=== PATIENT | male | born 2000 | race Caucasian/White ===

== ENCOUNTER 2018-01-13 23:04 | Observation (INO) ==
[2018-01-13] MEDS ORDERED: Metoprolol Inj 5 MG/5 ML Vial IV.PUSH ONE (23:15)
[2018-01-14 00:49] LABS: Chloride 101 meq/L (98-107); Potassium 3.3 meq/L (3.5-5.1); Sodium 138 meq/L (136-145)
--- NOTE | 2018-01-14 00:50 | ED ---
HPI General Chief Complaint: Arrhythmia / Palpitations Stated Complaint: heart palpitations Time Seen by Provider: 01/13/18 23:15 Source: patient and family Mode of arrival: ambulatory Limitations: no limitations History of Present Illness HPI narrative: Patient is a 17-year-old male he is coming in with palpitations that started suddenly tonight he denies excessive energy drinks he denies any stimulatory drugs he has had this happen to him before in the past he had seen a investigative analyst in [place] who had put a Holter monitor on and did not find any findings. Patient now is in rapid heart rate SVT narrow complex at 173 bpm. Patient is given Ativan IV with moderate reduce of his rapid heart rate to about 140 unable to see that he is not in the accessory pathway however he seems irregular and it looks like he is in a. I then give him Lopressor 2.5 which slows him further he is now rate controlled at 95 bpm however he is in A. fib with a few episodes of a P wave followed by an QRS that looks different than his QRS that are the rest of his EKG. Patient denies any thyroid history denies any congenital cardiac issues he had with again had a Holter monitor that did not find any solution to his episodes. Patient is pale and thin [place] by his father Related Data Home Medications Medication Instructions Recorded Confirmed No Known Home Medications 01/13/18 01/13/18 Allergies Allergy/AdvReac Type Severity Reaction Status Date / Time No Known Allergies Allergy Verified 01/13/18 23:15 Review of Systems ROS: all other systems reviewed are negative [facility] Medical History Medical History History of supraventricular tachycardia (Acute) Social History Social History Substance History: No History of Abuse Smoking Status: Current some day smoker Tobacco Type: Cigarettes How Often Do You Have a Drink Containing Alcohol: Never Recent Travel in [facility] [place] within the Last 8 Weeks: No Recent Out of Country Travel within the Last 8 Weeks: No Immunization History Tetanus Immunization: Unsure Exam Narrative Exam Narrative: GENERAL: Patient is pale thin circles underneath his eyes tacking weight 173 bpm irregularly rapid SKIN: Warm and dry. Pale HEAD: Atraumatic. Normocephalic. EYES: Pupils equal and round. No scleral icterus. No injection or drainage. ENT: No nasal bleeding or discharge. Mucous membranes pink and moist. NECK: Trachea midline. No JVD. CARDIOVASCULAR patient is in rapid A. fib after slowing him down A. fib with few episodes of a P wave followed by a QRS then going back into A. fib rate EKG 173 RESPIRATORY: No accessory muscle use. Clear to auscultation. Breath sounds equal bilaterally. GASTROINTESTINAL: Abdomen soft, non-tender, nondistended. Hepatic and splenic margins not palpable. MUSCULOSKELETAL: Extremities without clubbing, cyanosis, or edema. No obvious deformities. NEUROLOGICAL: Awake and alert. No obvious cranial nerve deficits. Motor grossly within normal limits. Five out of 5 muscle strength in the arms and legs. Normal speech. PSYCHIATRIC: Appropriate mood and affect; insight and judgment normal. Course Initial Documented Vital Signs Temperature 97.7 F 01/13/18 23:15 Pulse Rate 170 H 01/13/18 23:15 Respiratory Rate 20 01/13/18 23:15 Blood Pressure 155/95 H 01/13/18 23:15 Pulse Oximetry 100 01/13/18 23:15 Last Documented Vital Signs Temperature 97.7 F 01/13/18 23:15 Pulse Rate 94 H 01/14/18 00:41 Respiratory Rate 17 01/14/18 00:41 Blood Pressure 145/72 H 01/14/18 00:41 Pulse Oximetry 96 01/14/18 00:41 Medical Decision Making Lab Data Result diagrams: 01/14/18 00:03 01/14/18 00:03 Discharge Plan Physicians Team ED Provider: Timi Castillo Primary Care Provider: Primary Care Nel Dowell Rxs /Orders / Referrals /Forms Prescriptions: No Action No Known Home Medications RF: 0 Status ED Status: With Doctor
[2018-01-14 00:52] LABS: Albumin 4.7 g/dL (3.4-5.0); Anion Gap 8 meq/L (5-15); Blood Urea Nitrogen 12 mg/dL (7-18); Calcium 8.7 mg/dL (8.5-10.1); Carbon Dioxide 29.1 meq/L (21.0-32.0); Glucose,Random 82 mg/dL (74-106)
[2018-01-14 00:55] LABS: Alanine Aminotransferase 23 U/L (9-52)
[2018-01-14 00:56] LABS: Aspartate Aminotransferase 30 U/L (15-39); Glomerular Filtration Rate 78 mL/min (>89)
[2018-01-14 00:57] LABS: Total Protein 8.1 g/dL (6.4-8.2)
[2018-01-14 00:58] LABS: Alkaline Phosphatase 113 U/L (45-117)
[2018-01-14 01:20] LABS: Baso # (Auto) 0.1 th/mm3 (0.0-0.2); Baso % (Auto) 1.4 % (0.0-2.0); Eos # (Auto) 0.4 th/mm3 (0.0-0.4); Eos % (Auto) 4.8 % (0.0-4.0); Hematocrit 50.8 % (39.0-51.0); Lymph # (Auto) 3.3 th/mm3 (1.0-4.8); Lymph % (Auto) 35.9 % (9.0-44.0); Mean Corpuscular HGB Conc 33.5 % (32.0-36.0); Mean Corpuscular Hemoglobin 33.1 pg (27.0-34.0); Mean Corpuscular Volume 98.8 fL (80.0-100.0); Mean Platelet Volume 9.4 fL (7.0-11.0); Mono # (Auto) 0.6 th/mm3 (0.0-0.9); Mono % (Auto) 6.5 % (0.0-8.0); Neut # (Auto) 4.9 th/mm3 (1.8-7.7); Neut % (Auto) 51.4 % (16.0-70.0); Platelet Count 168 th/mm3 (150-450); Red Blood Count 5.15 mil/mm3 (4.50-5.90); Red Cell Distribution Width 12.6 % (11.6-17.2); White Blood Count 9.3 th/mm3 (4.0-11.0)
[2018-01-14] MEDS ORDERED: Acetaminophen 325 MG Tablet PO PRN (01:21)
[2018-01-14] MEDS ORDERED: Bisacodyl 10 MG Supp RECTAL PRN (01:21)
[2018-01-14 01:49] LABS: Barbiturate Screen,Urine Neg (Neg)
[2018-01-14 01:50] LABS: Amphetamine Screen,Urine Neg (Neg); Cannabinoid Screen,Urine Neg (Neg); Cocaine Screen,Urine Neg (Neg)
[2018-01-14 01:54] LABS: Opiate Screen,Urine Neg (Neg)
--- NOTE | 2018-01-14 08:07 | P.HP ---
History of Present Illness Primary Care Physician: No Primary Care Physician Chief Complaint: Fast heart rate History of Present Illness: 17-year-old male with no chronic medical illnesses who presented hospital for evaluation of fast heart rate. Patient states that little over a year ago he had an episode like this and was evaluated with testing to include EKGs, Holter monitor. He states that nothing was concluded with those test. Yesterday when the patient was sitting down at rest he is felt his heart starting to race, and because he had an episode of this before he wanted to come to the hospital to get an EKG to get it evaluated. On presentation patient had atrial fibrillation with RVR with heart rate 170. Patient was given Ativan, Lopressor, Inderal with improvement of his heart rate. Patient still with arrhythmia of atrial fibrillation, however rate is controlled. Patient denies any chest pain, shortness of breath, dyspnea, lightheadedness, dizziness, diaphoresis. Patient denies any amphetamine use, caffeine use, energy drinks, cold medications. - Diagnosis (1) Atrial fibrillation with RVR Review of Systems All other systems reviewed negative except as stated in HPI Cardiovascular: Reports irregular heart rhythm [facility] - History History Provided By: Patient - Medical History Medical History: Medical History (Last Updated 01/13/18 @ 23:17 by Rolando Morgan RN) History of supraventricular tachycardia - Surgical History Surgical History: Surgical History (Last Updated 01/14/18 @ 08:01 by ROBI Rey) No history of previous surgery - Family History Family History: Family History (Last Updated 01/14/18 @ 08:01 by ROBI Rey) Other No pertinent family history - Tobacco History Second Hand Smoke Exposure: Yes Tobacco Use In Past 30 Days: Yes Smoking Status: Current some day smoker Tobacco Type: Cigarettes - Alcohol History How Often Do You Have a Drink Containing Alcohol: Never - Substance Use History Substance History: No History of Abuse - Travel History Recent Travel in the [place] Within the Last 8 Weeks: No Recent Travel Out of the Country Within the Last 8 Weeks: No - Immunization History Tetanus Immunization: Unsure Medications and Allergies Active Medications: Active Medications Acetaminophen (Tylenol) 650 mg PO Q4H PRN PRN Reason: Temp > 100.4 Al Hydroxide/Mg Hydroxide (Milk Of Magnesia Liq) 30 ml PO Q12H PRN PRN Reason: Mild Constipation Bisacodyl (Dulcolax Supp) 10 mg RECTAL DAILY PRN PRN Reason: SEVERE CONSITIPATION Lactulose (Lactulose Liq) 30 ml PO DAILY PRN PRN Reason: SEVERE CONSITIPATION Ondansetron HCl (Zofran Inj) 4 mg IV.PUSH Q6H PRN PRN Reason: NAUSEA OR VOMITING Sennosides (Senokot) 17.2 mg PO Q12H PRN PRN Reason: Moderate Constipation Sodium Chloride (Ns Flush) 2 ml IV.FLUSH BID RADHA Sodium Chloride (Ns Flush) 2 ml IV.FLUSH PRN PRN PRN Reason: FLUSH AFTER USING IV ACCESS Allergies Allergy/AdvReac Type Severity Reaction Status Date / Time No Known Allergies Allergy Verified 01/13/18 23:15 Home Medications Medication Instructions Recorded Confirmed Type No Known Home Medications 01/13/18 01/13/18 History Exam Vital signs: Vital Signs 01/13/18 23:15 01/13/18 23:41 01/14/18 00:41 Temperature 97.7 F Pulse Rate 170 H 118 H 94 H Respiratory Rate 20 18 17 Blood Pressure 155/95 H 156/82 H 145/72 H Pulse Oximetry 100 98 96 01/14/18 01:29 01/14/18 02:24 01/14/18 02:31 Temperature 97.5 F L Pulse Rate 90 85 92 H Respiratory Rate 17 16 18 Blood Pressure 135/78 140/85 Pulse Oximetry 96 97 01/14/18 04:00 01/14/18 04:11 Temperature Pulse Rate 72 70 Respiratory Rate 13 14 Blood Pressure 102/46 L Pulse Oximetry 96 96 Intake & Output 01/13/18 01/14/18 01/14/18 18:59 06:59 18:59 Output Total 500 / 500 Balance -500 / -500 Weight 69.2 kg Output: Urine 500 / 500 Other: # Voids 1 Weight On Admission 69.2 kg Narrative: GENERAL: Well-developed, well-nourished, in no acute distress. alert and orientated HEENT: Head is normocephalic without any lesions or masses noted. Facial features are symmetric. Eyes: Pupils equal round reactive to light. Extraocular muscles are intact. Conjunctivae were clear. Oropharyngeal: Pharynx without any erythema edema. Tongue is midline without deviation. Buccal mucosa is moist without any masses or lesions NECK: Supple without any masses. Trachea midline no deviation. No JVD, no bruits are appreciated CARDIAC: Irregular rhythm, irregular rate. S1/S2 are heard. No murmurs gallops or rubs. LUNGS: Clear to auscultation bilaterally. No wheeze, rhonchi or rales. No use of accessory muscles on inspiration or expiration. ABDOMEN: Soft, nontender. Nondistended. Bowel sounds heard in all 4 quadrants. No organomegaly or masses. Negative rebound, negative guarding EXTREMITIES: No edema, pulses are equal bilaterally. No cyanosis or clubbing NEUROLOGY: Mood and affect appear appropriate. Cranial nerves II through XII grossly intact. Muscle strength 5/5 in upper and lower extremities bilaterally. Deep tendon reflexes are 2+ in upper and lower extremities bilaterally. Results - Labs CBC & Chem 7: 01/14/18 00:03 01/14/18 00:03 Labs: Laboratory Results - last 24 hr 01/14/18 01/14/18 01/14/18 00:03 00:03 01:33 CBC w Diff Auto diff final WBC 9.3 RBC 5.15 Hgb 17.0 Hct 50.8 MCV 98.8 MCH 33.1 MCHC 33.5 RDW 12.6 Plt Count 168 MPV 9.4 Neut % (Auto) 51.4 Lymph % (Auto) 35.9 [place] % (Auto) 6.5 Eos % (Auto) 4.8 H Baso % (Auto) 1.4 Neut # (Auto) 4.9 Lymph # (Auto) 3.3 [place] # (Auto) 0.6 Eos # (Auto) 0.4 Baso # (Auto) 0.1 WBC Differential . Differential Comment . Sodium 138 Potassium 3.3 L Chloride 101 Carbon Dioxide 29.1 Anion Gap 8 BUN 12 Creatinine 1.20 Estimated GFR 78 L Random Glucose 82 Calcium 8.7 Magnesium 2.4 Total Bilirubin 0.6 AST 30 ALT 23 Alkaline Phosphatase 113 Troponin I Less than 0.02 L Total Protein 8.1 Albumin 4.7 TSH 1.470 Urine Opiates Screen Ur Barbiturates Screen Ur Amphetamines Screen U Benzodiazepines Scrn Urine Cocaine Screen U Cannabinoids Screen 01/14/18 01:39 CBC w Diff WBC RBC Hgb Hct MCV MCH MCHC RDW Plt Count MPV Neut % (Auto) Lymph % (Auto) [place] % (Auto) Eos % (Auto) Baso % (Auto) Neut # (Auto) Lymph # (Auto) [place] # (Auto) Eos # (Auto) Baso # (Auto) WBC Differential Differential Comment Sodium Potassium Chloride Carbon Dioxide Anion Gap BUN Creatinine Estimated GFR Random Glucose Calcium Magnesium Total Bilirubin AST ALT Alkaline Phosphatase Troponin I Total Protein Albumin TSH Urine Opiates Screen Neg Ur Barbiturates Screen Neg Ur Amphetamines Screen Neg U Benzodiazepines Scrn Neg Urine Cocaine Screen Neg U Cannabinoids Screen Neg Caprini VTE Risk Assessment Caprini VTE Risk Assessment: No/Low Risk (score <= 1) Caprini Risk Assessment Model: Point Value = 1 Point Value = 2 Point Value = 3 Point Value = 5 Age 41-60 Minor surgery BMI > 25 kg/m2 Swollen legs Varicose veins or History of unexplained or recurrent spontaneous Oral contraceptives or hormone replacement Sepsis (< 1 month) Serious lung disease, including pneumonia (< 1 month) Abnormal pulmonary function Acute myocardial infarction Congestive heart failure (< 1 month) History of inflammatory bowel disease Medical patient at bed rest Age 61-74 Arthroscopic surgery Major open surgery (> 45 min) Laparoscopic surgery (> 45 min) Malignancy Confined to bed (> 72 hours) Immobilizing plaster cast Central venous access Age >= 75 History of VTE Family history of VTE Factor V Leiden Prothrombin [id number] Lupus anticoagulant Anticardiolipin antibodies Elevated serum homocysteine Heparin-induced thrombocytopenia Other congenital or acquired thrombophilia Stroke (< 1 month) Elective arthroplasty Hip, pelvis, or leg fracture Acute spinal cord injury (< 1 month) Prophylaxis Regimen: Total Risk Factor Score Risk Level Prophylaxis Regimen 0-1 Low Early ambulation 2 Moderate Order ONE of the following: *Sequential Compression Device (SCD) *Heparin 5000 units SQ BID 3-4 Higher Order ONE of the following medications: *Heparin 5000 units SQ TID *Enoxaparin/Lovenox 40 mg SQ daily (WT < 150 kg, CrCl > 30 mL/min) *Enoxaparin/Lovenox 30 mg SQ daily (WT < 150 kg, CrCl > 10-29 mL/min) *Enoxaparin/Lovenox 30 mg SQ BID (WT < 150 kg, CrCl > 30 mL/min) AND/OR *Sequential Compression Device (SCD) 5 or more Highest Order ONE of the following medications: *Heparin 5000 units SQ TID (Preferred with Epidurals) *Enoxaparin/Lovenox 40 mg SQ daily (WT < 150 kg, CrCl > 30 mL/min) *Enoxaparin/Lovenox 30 mg SQ daily (WT < 150 kg, CrCl > 10-29 mL/min) *Enoxaparin/Lovenox 30 mg SQ BID (WT < 150 kg, CrCl > 30 mL/min) AND *Sequential Compression Device (SCD) Assessment and Plan - Assessment (1) Atrial fibrillation with RVR Code(s): I48.91 - Unspecified atrial fibrillation Status: Acute - Plan New onset atrial fibrillation -Rate controlled after use Lopressor, Ativan, propranolol in the emergency department -Continue monitor telemetry -Continue monitor cardiac enzymes to rule out any cardiac injury -Obtain echocardiogram -Pursue myocardial perfusion study to evaluate for any underlying ischemic etiology -Cardiology consultation has been requested -CHADS 2 score is 0 -Start aspirin -After workup complete and life-threatening etiology has been ruled out. Patient could benefit from possible cardioversion, cardiac ablation DVT prevention -Sequential compression devices
[2018-01-14 10:13] LABS: Anion Gap 6 meq/L (5-15); Calcium 8.5 mg/dL (8.5-10.1); Carbon Dioxide 30.6 meq/L (21.0-32.0); Chloride 105 meq/L (98-107); Potassium 3.8 meq/L (3.5-5.1); Sodium 142 meq/L (136-145)
[2018-01-14 10:14] LABS: Blood Urea Nitrogen 9 mg/dL (7-18); Glucose,Random 86 mg/dL (74-106)
[2018-01-14 10:17] LABS: Glomerular Filtration Rate Greater Than 89 mL/min (>89)
[2018-01-14] MEDS ORDERED: Regadenoson Inj 0.4 MG/5 ML Syringe IV.PUSH ONE (10:47)
--- NOTE | 2018-01-14 11:46 | MB ---
cc: Rafa Peña MD DATE: 01/14/2018 HISTORY OF PRESENT ILLNESS: Mainor is a very pleasant 17-year-old gentleman with no significant past medical history, who presents with palpitations. He is actually found to be in atrial fibrillation with rapid ventricular response. The patient smokes, but otherwise denies any supplements, stimulants, amphetamines, weight loss supplements, weight loss fluid or electrolyte loss or any other obvious precipitants to atrial fibrillation. Currently he remains in atrial fibrillation, rate controlled. Otherwise, denies any chest pain, shortness of breath, fever, chills, cough, GI or bleeding, PND, orthopnea, syncope, or dizziness. PAST MEDICAL HISTORY: As per history of present illness. ALLERGIES: NONE. SOCIAL HISTORY: He does smoke. Denies alcohol use. MEDICATIONS: 1. Aspirin 325 daily. 2. The patient received propranolol 20 mg p.o. x 1. 3. Lopressor 2.5 mg IV x 1. PHYSICAL EXAMINATION: VITAL SIGNS: Temperature 97.5, pulse 92, respiratory rate 14, blood pressure 102/46, saturations 96% on room air. GENERAL: He is alert and oriented x 3, in no acute distress. NECK: Supple. No JVD. No bruit. CARDIOVASCULAR: S1, S2. No murmurs, rubs, gallops. LUNGS: Clear to auscultation bilaterally. ABDOMEN: Soft, nontender, nondistended with positive bowel sounds. EXTREMITIES: Lower extremity edema. IMAGING/LABORATORY DATA: His first EKG on 01/13/2018 at 2313 shows atrial fibrillation at a rate of 173 beats per minute, nonspecific ST-T wave changes. EKG on 01/13/2018 at 2335: Atrial fibrillation at a rate of 148 beats per minute, nonspecific ST-T wave changes, normal intervals. EKG 01/13/2018 at 2337: Atrial fibrillation at 122 beats per minute. Nonspecific ST-T wave changes, normal intervals. EKG 01/13/2018 at 2344: Atrial fibrillation at 101 beats per minute, nonspecific ST-T wave changes, normal intervals. There is no chest x-ray in the computer. LABORATORY DATA: White count 9.3, hemoglobin 17.0, hematocrit 50.8, platelet count 168. Sodium 138, potassium 3.3, chloride 101, bicarbonate 29.1, BUN 12, creatinine 1.20. Troponin less than 0.02 x 2. LFTs normal. TSH 1.470. Toxicology is negative. DIAGNOSES: 1. Atrial fibrillation with rapid ventricular response. 2. New onset atrial fibrillation. 3. Tobacco abuse. 4. Hypokalemia. DISCUSSION: This patient has new onset atrial fibrillation with hypokalemia, but no other obvious precipitants at this point in time. I certainly recommend getting a 2D echo. Otherwise, his CHADS-VASc score is 0. Agree with aspirin. He is rate controlled after 1 dose of Lopressor and propranolol as detailed above. We will need to continue telemetry monitoring. I have strongly advised the patient to discontinue smoking. We will follow up 2D echo. MD MERRY Starr/talita , 10:37 AM , 10:47 AM
--- NOTE | 2018-01-14 11:56 | NM ---
EXAM DATE: 01/14/2018 11:51 AM EST AGE/SEX: 17 years / Male INDICATIONS:Atrial Fibrillation. . Palpitations. CLINICAL DATA: This is the patient's initial encounter. Patient reports that signs and symptoms have been present for 1 day and indicates a pain score of 0/10. MEDICAL/SURGICAL HISTORY: . Supraventricular tachycardia. None. COMPARISON: No prior exams available for comparison. DOSE: 8.8 mCi Tc 99m Myoview at rest 27.3 mCi [id number] at stress 0.4 mg Lexiscan STRESS SYMPTOMS: Dyspnea, lightheadedness and chest pressure. EJECTION FRACTION: 45 % TECHNIQUE: The patient underwent pharmacologic stress with infusion of prescribed dose. Continuous ECG tracing was monitored during stress. Gated SPECT imaging was performed after stress and conventi onal SPECT imaging was performed at rest. The examination was performed on a SPECT/CT scanner, both attenuation and non-corrected datasets were reviewed. FINDINGS: Gut activity obscures the inferior wall. The best perfused myocardium is the lateral wall. There is n o redistribution suggest ischemia. Ejection fraction is intact at 45% with global hypokinesis. RISK CATEGORY: Low (<1% Annual Motality Rate) CONCLUSION: 1. Negative for stress-induced ischemia. 2. Gut activity does mass the inferior wall 3. Ejection fraction is 45% with global hypokinesis. Correlation suggested. Electronically signed by: Griffin Green MD 01/14/2018 11:55 AM EST
--- NOTE | 2018-01-14 16:43 | ECHRPT ---
Indication: Atrial Fib and Flutter CONCLUSIONS The left ventricular systolic function is mildly reduced with an estimated ejection fraction in the range of 45- 50%. Normal left ventricular size. Mild mitral valve regurgitation. There is trace tricuspid valve regurgitation. The estimated pulmonary arterial pressure is 31 mmHg. BP: 116 / 62 HR: 90 Rhythm: MEASUREMENTS (Male / Female) Normal Values Technical Quality:Good 2D ECHO LV Diastolic Diameter PLAX 4.3 cm 4.2 - 5.9 / 3.9 - 5.3 cm LV Systolic Diameter PLAX 3.2 cm IVS Diastolic Thickness 0.7 cm 0.6 - 1.0 / 0.6 - 0.9 cm LVPW Diastolic Thickness 0.9 cm 0.6 - 1.0 / 0.6 - 0.9 cm LV Relative Wall Thickness 0.4 RV Internal Dim ED PLAX 3.1 cm LVOT Diameter 2.3 cm Aortic Root Diameter 2.8 cm LA Systolic Diameter LX 2.8 cm 3.0 - 4.0 / 2.7 - 3.8 cm M-MODE AV Cusp Separation MM 2.0 cm DOPPLER AV Peak Velocity 83.6 cm/s AV Peak Gradient 2.8 mmHg LVOT Peak Velocity 70.6 cm/s LVOT Peak Gradient 2.0 mmHg AV Area Cont Eq pk 3.5 cm Mitral E Point Velocity 91.3 cm/s LV E' Lateral Velocity 14.0 cm/s Mitral E to LV E' Lateral Ratio 6.5 LV E' Septal Velocity 17.6 cm/s Mitral E to LV E' Septal Ratio 5.2 TR Peak Velocity 228.0 cm/s TR Peak Gradient 20.8 mmHg Right Atrial Pressure 10.0 mmHg Pulmonary Artery Systolic Pressu 30.8 mmHg Right Ventricular Systolic Press 30.8 mmHg PV Peak Velocity 78.7 cm/s PV Peak Gradient 2.5 mmHg FINDINGS LEFT VENTRICLE The left ventricular systolic function is mildly reduced with an estimated ejection fraction in the range of 45- 50%. Normal left ventricular size. RIGHT VENTRICLE Normal right ventricular size and systolic function. LEFT ATRIUM The left atrial size is normal. RIGHT ATRIUM The right atrial size is normal. ATRIAL SEPTUM Normal atrial septal thickness without atrial level shunting by limited color doppler interrogation. AORTA The aortic root and proximal ascending aorta are normal in size on limited imaging. MITRAL VALVE Mild mitral valve regurgitation. AORTIC VALVE Trileaflet aortic valve. No aortic valve stenosis or regurgitation. TRICUSPID VALVE There is trace tricuspid valve regurgitation. The estimated pulmonary arterial pressure is 31 mmHg. PULMONARY VALVE No pulmonary valve regurgitation or stenosis. VESSELS The inferior vena cava is normal in size. PERICARDIUM No pericardial effusion. Aditya Irvin MD (Electronically Signed) Final Date:14 January 2018 16:42
[2018-01-15 06:01] LABS: Baso # (Auto) 0.1 th/mm3 (0.0-0.2); Baso % (Auto) 1.5 % (0.0-2.0); Eos # (Auto) 0.4 th/mm3 (0.0-0.4); Eos % (Auto) 6.3 % (0.0-4.0); Hematocrit 48.7 % (39.0-51.0); Hemoglobin 16.3 gm/dL (13.0-17.0); Lymph # (Auto) 3.3 th/mm3 (1.0-4.8); Lymph % (Auto) 45.2 % (9.0-44.0); Mean Corpuscular HGB Conc 33.4 % (32.0-36.0); Mean Corpuscular Hemoglobin 32.7 pg (27.0-34.0); Mean Platelet Volume 8.1 fL (7.0-11.0); Mono # (Auto) 0.5 th/mm3 (0.0-0.9); Mono % (Auto) 6.9 % (0.0-8.0); Neut # (Auto) 2.8 th/mm3 (1.8-7.7); Neut % (Auto) 40.1 % (16.0-70.0); Platelet Count 145 th/mm3 (150-450); Red Blood Count 4.97 mil/mm3 (4.50-5.90); Red Cell Distribution Width 12.3 % (11.6-17.2); White Blood Count 7.1 th/mm3 (4.0-11.0)
[2018-01-15 06:11] LABS: Potassium 3.8 meq/L (3.5-5.1)
[2018-01-15 06:15] LABS: Calcium 8.6 mg/dL (8.5-10.1)
--- NOTE | 2018-01-15 09:51 | P.PNIM ---
Subjective Interval history: 17-year-old male who is seen examined today for follow-up on new onset atrial fibrillation. Patient is lying in bed resting comfortably. Patient still with irregular rhythm. Patient denies any symptoms at this time. Blood pressure is stable. Patient remains afebrile. Physical Exam Vital signs: Vital Signs 01/14/18 11:56 01/14/18 12:00 01/14/18 14:00 Temperature 98.8 F 98.4 F Pulse Rate 74 76 80 Respiratory Rate 8 L 12 Blood Pressure 126/85 126/85 Pulse Oximetry 98 01/14/18 16:00 01/14/18 20:00 01/15/18 00:00 Temperature 98.3 F 98.3 F 98.4 F Pulse Rate 76 126 H 68 Respiratory Rate 01 25 18 Blood Pressure 115/59 L 110/58 L 119/75 Pulse Oximetry 99 100 01/15/18 04:00 Temperature Pulse Rate 64 Respiratory Rate 18 Blood Pressure 106/57 L Pulse Oximetry 99 Intake & Output 01/14/18 01/15/18 01/15/18 18:59 06:59 18:59 Weight 68.2 kg Other: # Voids 2 3 Narrative: GENERAL: Well-developed, well-nourished, in no acute distress. alert and orientated HEENT: Head is normocephalic without any lesions or masses noted. Facial features are symmetric. Eyes: Extraocular muscles are intact. Conjunctivae were clear. NECK: Supple without any masses. Trachea midline no deviation. No JVD, CARDIAC: Irregular rhythm, irregular rate. S1/S2 are heard. No murmurs gallops or rubs. LUNGS: Clear to auscultation bilaterally. No wheeze, rhonchi or rales. No use of accessory muscles on inspiration or expiration. ABDOMEN: Soft, nontender. Nondistended. Bowel sounds heard in all 4 quadrants. No organomegaly or masses. Negative rebound, negative guarding EXTREMITIES: No edema, pulses are equal bilaterally. No cyanosis or clubbing NEUROLOGY: Mood and affect appear appropriate. Cranial nerves II through XII grossly intact. Moving all extremities, speech is clear Results - Labs CBC & Chem 7: 01/15/18 05:37 01/15/18 05:37 Laboratory Results - last 24 hr 12/07/18 12/07/18 12/08/18 09:20 09:20 05:37 CBC w Diff Auto diff final WBC 7.1 RBC 4.97 Hgb 16.3 Hct 48.7 MCV 98.0 MCH 32.7 MCHC 33.4 RDW 12.3 Plt Count 145 L MPV 8.1 Neut % (Auto) 40.1 Lymph % (Auto) 45.2 H [place] % (Auto) 6.9 Eos % (Auto) 6.3 H Baso % (Auto) 1.5 Neut # (Auto) 2.8 Lymph # (Auto) 3.3 [place] # (Auto) 0.5 Eos # (Auto) 0.4 Baso # (Auto) 0.1 WBC Differential . Differential Comment . Sodium 142 Potassium 3.8 Chloride 105 Carbon Dioxide 30.6 Anion Gap 6 BUN 9 Creatinine 1.00 Estimated GFR Greater than 89 Random Glucose 86 Calcium 8.5 Troponin I Less than 0.02 L 01/15/18 05:37 CBC w Diff WBC RBC Hgb Hct MCV MCH MCHC RDW Plt Count MPV Neut % (Auto) Lymph % (Auto) [place] % (Auto) Eos % (Auto) Baso % (Auto) Neut # (Auto) Lymph # (Auto) [place] # (Auto) Eos # (Auto) Baso # (Auto) WBC Differential Differential Comment Sodium 140 Potassium 3.8 Chloride 104 Carbon Dioxide 30.0 Anion Gap 6 BUN 11 Creatinine 1.10 Estimated GFR 86 L Random Glucose 89 Calcium 8.6 Troponin I - Imaging Impressions Myocardial Perfusion Scan Nuc Med 01/14/18 09:18 CONCLUSION: 1. Negative for stress-induced ischemia. 2. Gut activity does mass the inferior wall 3. Ejection fraction is 45% with global hypokinesis. Correlation suggested. - Procedures ECHOCARDIOGRAM CONCLUSIONS The left ventricular systolic function is mildly reduced with an estimated ejection fraction in the range of 45- 50%. Normal left ventricular size. Mild mitral valve regurgitation. There is trace tricuspid valve regurgitation. The estimated pulmonary arterial pressure is 31 mmHg. Assessment and Plan - Assessment (1) Atrial fibrillation with RVR Code(s): I48.91 - Unspecified atrial fibrillation Status: Acute - Plan New onset atrial fibrillation -Rate controlled after use Lopressor, Ativan, propranolol in the emergency department -Continue monitor telemetry -Continue monitor cardiac enzymes to rule out any cardiac injury -Echocardiogram does indicate ejection fraction 45-50%, with mild reduction of systolic function -Myocardial perfusion study performed which did not show any signs of ischemia does indicate ejection fraction of 45% -Cardiology consultation will performed and Dr. Peña is requesting patient be transferred to the main hospital for further treatment -CHADS 2 score is 0 -Continue aspirin DVT prevention -Sequential compression devices Discussed Condition With: Discussed with patient, family at bedside, father on the phone
[2018-01-15] MEDS ORDERED: dilTIAZem Inj 125 MG in Sodium Chlor 0.9% Inj 100 ML IV.CONT PRN ×2 (11:56→14:30)
[2018-01-15] MEDS: dilTIAZem 30 MG Tablet PO SCH ×2 (17:20→23:39)
--- NOTE | 2018-01-15 17:41 | ECG ---
Date Performed: 01/13/2018 Time Performed: 23:37:33 PTAGE: 17 years EKG: ATRIAL FIBRILLATION WITH RAPID VENTRICULAR RESPONSE NONSPECIFIC T-WAVE ABNORMALITY ABNORMAL ECG PREVIOUS TRACING : 01/13/2018 23.35 DOCTOR: Denise Hancock Interpretating Date/Time 01/15/2018 17:29:33
--- NOTE | 2018-01-15 17:41 | ECG ---
Date Performed: 01/13/2018 Time Performed: 23:44:45 PTAGE: 17 years EKG: ATRIAL FIBRILLATION WITH RAPID VENTRICULAR RESPONSE NONSPECIFIC T-WAVE ABNORMALITY ABNORMAL ECG PREVIOUS TRACING : 01/13/2018 23.37 DOCTOR: Denise Hancock Interpretating Date/Time 01/15/2018 17:29:27
--- NOTE | 2018-01-15 17:41 | ECG ---
Date Performed: 01/13/2018 Time Performed: 23:35:40 PTAGE: 17 years EKG: ATRIAL FIBRILLATION WITH RAPID VENTRICULAR RESPONSE ST DEVIATION AND MODERATE T-WAVE ABNORM ALITY, CONSIDER INFERIOR ISCHEMIA ABNORMAL ECG PREVIOUS TRACING : 01/13/2018 23.13 DOCTOR: Denise Hancock Interpretating Date/Time 01/15/2018 17:29:38
--- NOTE | 2018-01-15 17:42 | ECG ---
Date Performed: 01/13/2018 Time Performed: 23:13:19 PTAGE: 17 years EKG: ATRIAL FIBRILLATION WITH RAPID VENTRICULAR RESPONSE ST DEVIATION AND MODERATE T-WAVE ABNORM ALITY, CONSIDER INFERIOR ISCHEMIA ABNORMAL ECG NO PREVIOUS TRACING DOCTOR: Denise Hancock Interpretating Date/Time 01/15/2018 17:29:51
[2018-01-15] MEDS: Enoxaparin Inj 80 MG/0.8 ML Syringe SQ SCH (21:35)
[2018-01-16 05:06] LABS: Hematocrit 46.1 % (39.0-51.0); Hemoglobin 16.3 gm/dL (13.0-17.0); Mean Corpuscular HGB Conc 35.4 % (32.0-36.0); Mean Corpuscular Hemoglobin 34.5 pg (27.0-34.0); Mean Corpuscular Volume 97.5 fL (80.0-100.0); Mean Platelet Volume 8.1 fL (7.0-11.0); Platelet Count 138 th/mm3 (150-450); Red Blood Count 4.73 mil/mm3 (4.50-5.90); Red Cell Distribution Width 12.7 % (11.6-17.2)
[2018-01-16] MEDS: dilTIAZem 30 MG Tablet PO SCH ×4 (06:25→23:45)
[2018-01-16] MEDS: Enoxaparin Inj 80 MG/0.8 ML Syringe SQ SCH ×2 (09:22→20:55)
--- NOTE | 2018-01-16 09:56 | P.PNIM ---
Subjective Interval history: feels ok. no complaints presently. no dizziness or lightheadedness. Interval hx-telemetry reviewed, reverted to sinus rhythm last night. Physical Exam Vital signs: Last Vital Signs Temp 97.7 F 01/16/18 04:00 Pulse 58 L 01/16/18 07:00 Resp 16 01/16/18 04:00 BP 102/55 L 01/16/18 04:00 Pulse Ox 99 01/15/18 04:00 Intake & Output 01/14/18 01/15/18 01/16/18 01/17/18 06:59 06:59 06:59 06:59 Intake Total 120 / 120 Output Total 500 / 500 Balance -500 / -500 120 / 120 Weight 69.2 kg 68.2 kg 70 kg Narrative: GENERAL: Well-developed, well-nourished, in no acute distress. alert and orientated HEENT:not pale,anicteric. NECK: No JVD, CARDIAC: rrr. S1/S2 are heard. No murmurs gallops or rubs. LUNGS: Clear to auscultation bilaterally. No wheeze, rhonchi or rales. No use of accessory muscles on inspiration or expiration. ABDOMEN: Soft, nontender. Nondistended. Bowel sounds normal. No organomegaly or masses. EXTREMITIES: No edema, pulses are equal bilaterally. No cyanosis or clubbing NEUROLOGY: Mood and affect appear appropriate. Awake,alert,oriented. no focal deficits. Results Labs CBC & Chem 7: 01/16/18 04:46 01/15/18 05:37 Procedures Procedures: ECHOCARDIOGRAM CONCLUSIONS The left ventricular systolic function is mildly reduced with an estimated ejection fraction in the range of 45- 50%. Normal left ventricular size. Mild mitral valve regurgitation. There is trace tricuspid valve regurgitation. The estimated pulmonary arterial pressure is 31 mmHg. Assessment and Plan (1) Atrial fibrillation with RVR: Code(s): I48.91 - Unspecified atrial fibrillation Status: Acute Plan 17 yo M who presented with A. fib w RVR. ECHO noted with EF 45-50% [id number] 0, no need for anticoagulation. He has spontaneously reverted to NSR. Keep on [facility] cardiology following, recs appreciated. Hypokalemia--resolved. Progress Note: Quality VTE Deep Vein Thrombosis/Pulmonary Embolism Present on Admission: No
--- NOTE | 2018-01-16 10:41 | P.PNCA ---
Subjective Interval history: alert in nad Medications and Allergies Active Medications: Active Medications Acetaminophen (Tylenol) 650 mg PO Q4H PRN PRN Reason: Temp > 100.4 Al Hydroxide/Mg Hydroxide (Milk Of Magnesia Liq) 30 ml PO Q12H PRN PRN Reason: Mild Constipation Bisacodyl (Dulcolax Supp) 10 mg RECTAL DAILY PRN PRN Reason: SEVERE CONSITIPATION Diltiazem HCl (Cardizem) 30 mg PO Q6HR [facility] Last Admin: 01/16/18 06:25 Dose: Not Given Enoxaparin Sodium (Lovenox Inj) 70 mg SQ Q12HR [facility] Last Admin: 01/16/18 09:22 Dose: 70 mg Lactulose (Lactulose Liq) 30 ml PO DAILY PRN PRN Reason: SEVERE CONSITIPATION Ondansetron HCl (Zofran Inj) 4 mg IV.PUSH Q6H PRN PRN Reason: NAUSEA OR VOMITING Sennosides (Senokot) 17.2 mg PO Q12H PRN PRN Reason: Moderate Constipation Sodium Chloride (Ns Flush) 2 ml IV.FLUSH BID [facility] Last Admin: 01/16/18 09:22 Dose: 2 ml Sodium Chloride (Ns Flush) 2 ml IV.FLUSH PRN PRN PRN Reason: FLUSH AFTER USING IV ACCESS Allergies Allergy/AdvReac Type Severity Reaction Status Date / Time No Known Allergies Allergy Verified 01/13/18 23:15 Home Medications Medication Instructions Recorded Confirmed Type No Known Home Medications 01/13/18 01/13/18 History Physical Exam Vital signs: Vital Signs 01/15/18 16:00 01/15/18 20:00 01/15/18 21:00 Temperature 98 F 98.9 F Pulse Rate 69 63 Respiratory Rate 20 16 Blood Pressure 108/62 01/15/18 22:00 01/15/18 23:00 01/16/18 00:00 Temperature 97.2 F L Pulse Rate 67 60 66 Respiratory Rate 16 Blood Pressure 124/58 L 01/16/18 01:00 01/16/18 02:00 01/16/18 03:00 Temperature Pulse Rate 55 L 56 L 56 L Respiratory Rate Blood Pressure 01/16/18 04:00 01/16/18 05:00 01/16/18 05:45 Temperature 97.7 F Pulse Rate 55 L 57 L 50 L Respiratory Rate 16 Blood Pressure 102/55 L 01/16/18 07:00 Temperature Pulse Rate 58 L Respiratory Rate Blood Pressure Intake & Output 01/15/18 01/16/18 01/16/18 18:59 06:59 18:59 Intake Total 120 / 120 Balance 120 / 120 Weight 70 kg Intake: Other 120 / 120 - Constitutional no acute distress - Routine HEENT Exam Head: Present: normocephalic - Routine Neck Exam Present: supple - Routine Respiratory Exam Present: CTA bilaterally - Routine Cardiovascular Exam Present: S1, S2 - Routine Abdominal Exam Present: soft - Routine Extremities Exam Comments: no stuart Results 01/16/18 04:46 01/15/18 05:37 CBC 01/15/18 01/16/18 Range/Units 05:37 04:46 WBC 7.1 8.0 (4.0-11.0) th/mm3 RBC 4.97 4.73 (4.50-5.90) mil/mm3 Hgb 16.3 16.3 (13.0-17.0) gm/dL Hct 48.7 46.1 (39.0-51.0) % Plt Count 145 L 138 L (150-450) th/mm3 Neut # (Auto) 2.8 (1.8-7.7) th/mm3 Lymph # (Auto) 3.3 (1.0-4.8) th/mm3 [place] # (Auto) 0.5 (0.0-0.9) th/mm3 Eos # (Auto) 0.4 (0.0-0.4) th/mm3 Baso # (Auto) 0.1 (0.0-0.2) th/mm3 Comprehensive Metabolic Panel 01/15/18 Range/Units 05:37 Sodium 140 (136-145) meq/L Potassium 3.8 (3.5-5.1) meq/L Chloride 104 (98-107) meq/L Carbon Dioxide 30.0 (21.0-32.0) meq/L BUN 11 (7-18) mg/dL Creatinine 1.10 (0.60-1.30) mg/dL Calcium 8.6 (8.5-10.1) mg/dL Intake and Output 01/15/18 01/16/18 01/16/18 22:59 06:59 14:59 Other: Weight 70 kg - Imaging and Cardiology Imaging: Impressions Myocardial Perfusion Scan Nuc Med 01/14/18 09:18 CONCLUSION: 1. Negative for stress-induced ischemia. 2. Gut activity does mass the inferior wall 3. Ejection fraction is 45% with global hypokinesis. Correlation suggested. Assessment and Plan - Assessment (1) Cardiomyopathy Code(s): I42.9 - Cardiomyopathy, unspecified Status: Acute (2) Atrial fibrillation with RVR Code(s): I48.91 - Unspecified atrial fibrillation Status: Acute - Plan 1.) PAF - in nsr, continue lovenox due to cardiomyopathy, ef=45-50%; this may be due to rvr; would like EP to evaluate 01/17/18; continue cardizem 30 mg qid, d/w patient and his father at the bedside
[2018-01-17 04:50] LABS: Hematocrit 45.3 % (39.0-51.0); Hemoglobin 15.9 gm/dL (13.0-17.0); Mean Corpuscular HGB Conc 35.1 % (32.0-36.0); Mean Corpuscular Hemoglobin 34.2 pg (27.0-34.0); Mean Corpuscular Volume 97.5 fL (80.0-100.0); Mean Platelet Volume 7.9 fL (7.0-11.0); Platelet Count 135 th/mm3 (150-450); Red Blood Count 4.64 mil/mm3 (4.50-5.90); White Blood Count 7.2 th/mm3 (4.0-11.0)
[2018-01-17 04:57] LABS: Platelet Count 138 th/mm3 (150-450); Reticulocyte Percent 1.3 % (0.4-3.0)
[2018-01-17 05:01] LABS: INR 1.1 Ratio; Prothrombin Time 11.2 sec (9.8-11.6)
[2018-01-17 05:05] LABS: Lactate Dehydrogenase 102 U/L (87-241)
[2018-01-17 05:30] LABS: Ferritin 68 ng/mL (26-388); Vitamin B12 381 pg/mL (193-986)
[2018-01-17] MEDS: dilTIAZem 30 MG Tablet PO SCH ×3 (05:52→19:44)
--- NOTE | 2018-01-17 09:17 | MB ---
cc: Ester Harrison MD,Rafa Banerjee MD DATE: 01/17/2018 REFERRING PHYSICIAN: Dr. Rafa Peña CHIEF COMPLAINT: Dr. Peña requested consultation for Mr. Wren regarding thrombocytopenia. HISTORY OF PRESENT ILLNESS: Mr. Wren is a 17-year-old young man with no significant past history. He reports an episode of fast heart rate approximately 2 years ago, which resolved spontaneously. He came into the emergency room on 01/14/2018, with fast heart rate. He was seen by Timi Castillo MD. He was treated initially with anxiolytic, subsequently Lopressor, and was found to have atrial fibrillation. Cardiology was consulted. Echo showed a decrease in ejection fraction to 45%-50% range. For this reason, he was transferred to the [facility]. He was seen in consultation by Dr. Rafa Peña. Because of the decreased ejection fraction, he is recommended to have electrophysiology evaluation. During his hospitalization, he was admitted with a normal CBC. His platelet count drifted down to 145,000 and stays around 135,000. Denies any bleeding. He was placed on Lovenox for anticoagulant therapy in light of his atrial fibrillation. He has no prior history of thrombocytopenia. He denies any chest pain or shortness of breath. Denies any fevers, chills, or night sweats. He has no urinary complaints. His bowels are moving normally. He has some nausea when blood is drawn, does not like phlebotomies. He has some burning pain associated with the Lovenox. He does not have any gum bleeding, epistaxis. There is no family history of bleeding diathesis. He is familiar with anticoagulant Eliquis as his grandfather is on that medication. PAST MEDICAL HISTORY: None. PAST SURGICAL HISTORY: None. SOCIAL HISTORY: He is an active smoker and was encouraged to stop. He denies any alcohol or illicit drug use. FAMILY HISTORY: No family history of bleeding disorder. No family history of blood disorder. His mother is anemic. She is a premenopausal. Grandfather has atrial fibrillation. ALLERGIES: NO KNOWN DRUG ALLERGIES. CURRENT MEDICATIONS: Include Cardizem and Lovenox. PHYSICAL EXAMINATION: VITAL SIGNS: Temperature 98.0, heart rate 56, respiratory rate 16, blood pressure 103/59. GENERAL: Mr. Wren is a well-developed, well-nourished, young man, in no acute distress. HEENT: Pupils are round, reactive to light and accommodation. Oropharynx is clear. NECK: Supple. LUNGS: Clear. CARDIOVASCULAR: Reveals a bradycardia. He has a mild pectus excavatum. ABDOMEN: Benign. EXTREMITIES: Lower extremities, no edema. NEUROLOGIC: Nonfocal. LABORATORY DATA: As described above. Platelet count in a blue top tube was 138. PT, PTT are normal. Chemistry is normal. B12, LDH, ferritin are normal. Antiphospholipid antibody are pending. ASSESSMENT AND PLAN: Mr. Wren is a 17-year-old male with no significant past history. He presents with a tachyarrhythmia, was found to have atrial fibrillation. He has decreased ejection fraction and therefore EP study was requested. He is pending to see the cuff setter/elementary reading specialist today. I had a lengthy discussion about his thrombocytopenia. I suspect that this is his baseline. He is asymptomatic. I recommend no specific therapy. He is tolerating his anticoagulant therapy well. Anticipate the Lovenox would be switched to Eliquis when he is discharged. I have asked nursing to provide information on Eliquis. He is familiar with Eliquis given that his grandfather is on the medication. This largely depends on the outcome of his EP evaluation and treatment. For now, Lovenox will be run down to the nearest vial size. He is tolerating it well. His renal function is stable. Liver functions are normal. Liver pathology or hypersplenism is not expected. He does have a tattoo on the right arm. We will check a liver ultrasound to evaluate liver and spleen size. MD KRISTEN Yanez/jeffry , 08:46 AM , 08:59 AM
--- NOTE | 2018-01-17 09:21 | P.PNIM ---
Subjective Interval history: feeling well. no palpitations. tele remains rate controlled in NSR Physical Exam Vital signs: Last Vital Signs Temp 98 F 01/17/18 04:00 Pulse 60 01/17/18 05:50 Resp 16 01/17/18 04:00 BP 103/59 L 01/17/18 04:00 Pulse Ox 100 01/16/18 16:00 Intake & Output 01/15/18 01/16/18 01/17/18 01/18/18 06:59 06:59 06:59 06:59 Intake Total 120 / 120 Balance 120 / 120 Weight 68.2 kg 70 kg 69.5 kg Narrative: GENERAL: Well-developed, well-nourished, in no acute distress. alert and orientated HEENT:not pale,anicteric. NECK: No JVD, CARDIAC: rrr. S1/S2 are heard. No murmurs gallops or rubs. LUNGS: Clear to auscultation bilaterally. No wheeze, rhonchi or rales. No use of accessory muscles on inspiration or expiration. ABDOMEN: Soft, nontender. Nondistended. Bowel sounds normal. No organomegaly or masses. EXTREMITIES: No edema, pulses are equal bilaterally. No cyanosis or clubbing NEUROLOGY: Mood and affect appear appropriate. Awake,alert,oriented. no focal deficits. Results Labs CBC & Chem 7: 01/17/18 04:27 01/15/18 05:37 Procedures Procedures: ECHOCARDIOGRAM CONCLUSIONS The left ventricular systolic function is mildly reduced with an estimated ejection fraction in the range of 45- 50%. Normal left ventricular size. Mild mitral valve regurgitation. There is trace tricuspid valve regurgitation. The estimated pulmonary arterial pressure is 31 mmHg. Assessment and Plan (1) Cardiomyopathy: Code(s): I42.9 - Cardiomyopathy, unspecified Status: Acute (2) Atrial fibrillation with RVR: Code(s): I48.91 - Unspecified atrial fibrillation Status: Acute Plan 17 yo M who presented with A. fib w RVR. ECHO noted with EF 45-50% [id number] 0, no need for anticoagulation. He has spontaneously reverted to NSR. Keep on [facility] cardiology following-Dr. Peña plans to consult EP, and he also consulted hematology for thrombocytopenia recs appreciated. Hypokalemia--resolved. Progress Note: Quality VTE Deep Vein Thrombosis/Pulmonary Embolism Present on Admission: No _ (1) Cardiomyopathy Qualifiers: Cardiomyopathy type:
--- NOTE | 2018-01-17 09:58 | US ---
EXAM DATE: 01/17/2018 9:51 AM EST AGE/SEX: 17 years / Male INDICATIONS: Thrombocytopenia. CLINICAL DATA: This is the patient's initial encounter. Patient reports that signs and symptoms have been present for 1 day and indicates a pain score of 0/10. MEDICAL/SURGICAL HISTORY: . Afib. Supraventricular tachycardia. None. COMPARISON: [facility], CT ABDOMEN & PELVIS W CONTRAST, 06/06/2014. . MEASUREMENTS: Liver:__ 14.8 cm. Common Bile Duct:__ 3mm. Right Kidney:__ 10.7 x 5.2 x 4.2 cm. FINDINGS: Liver: Normal echogenicity without focal lesion or ductal dilatation. Portal Vein: Hepatopedal flow seen in portal vein. Common Duct: No intraluminal mass or stone visualized. Gallbladder: Distended gallbladder without gallbladder wall thickening, stone or pericholecystic flui d. Pancreas: The visualized portions are within normal limits Right Kidney: Normal echogenicity and cortical thickness. No mass or hydronephrosis. Other: None. CONCLUSION: 1. Distended gallbladder without definitive sonographic findings for acute cholecystitis. Electronically signed by: Massimo Osei MD 01/17/2018 9:56 AM EST
[2018-01-17] MEDS ORDERED: Enoxaparin Inj 60 MG/0.6 ML Syringe SQ SCH (10:00)
--- NOTE | 2018-01-17 16:51 | P.PNCA ---
Subjective Interval history: alert in nad Medications and Allergies Active Medications: Active Medications Acetaminophen (Tylenol) 650 mg PO Q4H PRN PRN Reason: Temp > 100.4 Al Hydroxide/Mg Hydroxide (Milk Of Magnesia Liq) 30 ml PO Q12H PRN PRN Reason: Mild Constipation Bisacodyl (Dulcolax Supp) 10 mg RECTAL DAILY PRN PRN Reason: SEVERE CONSITIPATION Diltiazem HCl (Cardizem) 30 mg PO Q6HR [facility] Last Admin: 01/17/18 11:36 Dose: 30 mg Enoxaparin Sodium (Lovenox Inj) 60 mg SQ Q12H [facility] Last Admin: 01/17/18 10:04 Dose: 60 mg Lactulose (Lactulose Liq) 30 ml PO DAILY PRN PRN Reason: SEVERE CONSITIPATION Ondansetron HCl (Zofran Inj) 4 mg IV.PUSH Q6H PRN PRN Reason: NAUSEA OR VOMITING Sennosides (Senokot) 17.2 mg PO Q12H PRN PRN Reason: Moderate Constipation Sodium Chloride (Ns Flush) 2 ml IV.FLUSH BID [facility] Last Admin: 01/17/18 10:04 Dose: 2 ml Sodium Chloride (Ns Flush) 2 ml IV.FLUSH PRN PRN PRN Reason: FLUSH AFTER USING IV ACCESS Allergies Allergy/AdvReac Type Severity Reaction Status Date / Time No Known Allergies Allergy Verified 01/13/18 23:15 Home Medications Medication Instructions Recorded Confirmed Type No Known Home Medications 01/13/18 01/13/18 History Physical Exam Vital signs: Vital Signs 01/16/18 17:00 01/16/18 18:00 01/16/18 19:00 Temperature Pulse Rate 85 80 79 Respiratory Rate Blood Pressure Pulse Oximetry 01/16/18 20:00 01/16/18 21:00 01/16/18 22:00 Temperature 98.5 F Pulse Rate 76 75 61 Respiratory Rate 16 Blood Pressure 126/60 Pulse Oximetry 01/16/18 23:00 01/17/18 00:00 01/17/18 01:00 Temperature 98.1 F Pulse Rate 63 55 L 52 L Respiratory Rate 16 Blood Pressure 112/59 L Pulse Oximetry 01/17/18 02:00 01/17/18 03:00 01/17/18 04:00 Temperature 98 F Pulse Rate 54 L 49 L 56 L Respiratory Rate 16 Blood Pressure 103/59 L Pulse Oximetry 01/17/18 05:00 01/17/18 05:50 01/17/18 07:00 Temperature Pulse Rate 55 L 60 51 L Respiratory Rate Blood Pressure Pulse Oximetry 01/17/18 08:00 01/17/18 11:00 01/17/18 12:00 Temperature 98.5 F 98.4 F Pulse Rate 77 59 L 75 Respiratory Rate 16 16 Blood Pressure 112/61 128/63 Pulse Oximetry 100 100 Intake & Output 01/16/18 01/17/18 01/17/18 18:59 06:59 18:59 Weight 69.5 kg - Constitutional no acute distress - Routine HEENT Exam Head: Present: normocephalic - Routine Neck Exam Present: supple - Routine Respiratory Exam Present: CTA bilaterally - Routine Cardiovascular Exam Present: S1, S2 - Routine Abdominal Exam Present: soft - Routine Extremities Exam Comments: no stuart Results 01/17/18 04:27 01/15/18 05:37 Cardiac Enzymes 01/17/18 Range/Units 04:27 Lactate Dehydrogenase 102 (87-241) U/L Coagulation 01/17/18 Range/Units 04:27 PT 11.2 (9.8-11.6) sec APTT 31.0 (23.4-31.7) sec CBC 01/16/18 01/17/18 01/17/18 Range/Units 04:46 04:27 04:27 WBC 8.0 7.2 (4.0-11.0) th/mm3 RBC 4.73 4.64 (4.50-5.90) mil/mm3 Hgb 16.3 15.9 (13.0-17.0) gm/dL Hct 46.1 45.3 (39.0-51.0) % Plt Count 138 L 135 L 138 L (150-450) th/mm3 Intake and Output 01/17/18 01/17/18 01/17/18 06:59 14:59 22:59 Other: Weight 69.5 kg - Imaging and Cardiology Imaging: Impressions Liver Ultrasound 01/17/18 00:00 CONCLUSION: 1. Distended gallbladder without definitive sonographic findings for acute cholecystitis. Assessment and Plan - Assessment (1) Cardiomyopathy Code(s): I42.9 - Cardiomyopathy, unspecified Status: Acute (2) Atrial fibrillation with RVR Code(s): I48.91 - Unspecified atrial fibrillation Status: Acute - Plan 1.) PAF - in nsr, continue lovenox due to cardiomyopathy, ef=45-50%; this may be due to rvr; would like EP to evaluate 01/17/18; continue cardizem 30 mg qid, d/w patient and his family at the bedside
[2018-01-17] MEDS ORDERED: LORazepam 1 MG Tablet SL PRN (18:55)
[2018-01-17] MEDS ORDERED: Sodium Chlor 0.9% Inj 500 ML IV.CONT SCH ×2 (19:00)
[2018-01-17 20:27] LABS: INR 1.1 Ratio; Prothrombin Time 10.7 sec (9.8-11.6)
--- NOTE | 2018-01-17 21:23 | MB ---
cc: Denise Hancock MD, ABEDNEGO Marya DATE: 01/17/2018 REASON FOR CONSULTATION: Atrial fibrillation with fast ventricular response. HISTORY OF PRESENT ILLNESS: Mr. Wren is a 17-year-old gentleman with no significant history of toxic habit. Stopped smoking a long time ago. This young man was having palpitations on and off for the past 2 years. On 01/13/2018, he was admitted to the emergency room due to atrial fibrillation with fast ventricular response. During hospitalization, IV Cardizem was initiated. The patient converted back into sinus rhythm. I was consulted for further evaluation and management. The chart was reviewed, the patient was evaluated. ALLERGIES: None. SOCIAL HISTORY: As mentioned before, negative for smoking and drinking. FAMILY HISTORY: Noncontributory to his current medical condition. MEDICATIONS: The gentleman is on Lovenox. He is on Cardizem 30 mg q. 6 hours. He is on magnesium, Zofran p.r.n. REVIEW OF SYSTEMS: Currently, the patient referred no chest pain. No chest discomfort. No palpitation. No fever. PHYSICAL EXAMINATION: GENERAL: Alert, fully oriented. VITAL SIGNS: Blood pressure evaluation 117/73, pulse 76, respiratory rate 18. LUNGS: Ventilated. CARDIOVASCULAR: S1, S2. No gallop. No murmur. ABDOMEN: Soft. No mass. EXTREMITIES: No edema. DIAGNOSTIC DATA: Electrocardiogram on hospitalization indicated atrial fibrillation with fast ventricular response. Rate was around 180 beats per minute. Currently, the patient is in sinus rhythm. LABORATORY DATA: Hemoglobin 15.9, white blood cell 7.2. INR 1.1. Toxicology negative. Potassium 3.8, creatinine 1.10. ASSESSMENT AND RECOMMENDATIONS: Mr. Wren has atrial fibrillation and fast ventricular response for at least 2 years. Episodes on and off. He decided at least to come to the emergency room last night. Rate controlled at this point. He is back into sinus rhythm. He is on Lovenox. He has a CHADS-VASc of 0. Electrophysiology study and ablation versus medical management discussed extensively with him, his mother, and grandmother. The risk, the nature, and the benefits of the procedure were clearly stated to them. Risks include pneumothorax, cardiac perforation, stroke, and even . The patient and family want to proceed with ablation while in the hospital. I will keep him n.p.o. after midnight. Procedure will be performed tomorrow morning. Denise Hancock MD /rh , 06:55 PM , 07:06 PM
[2018-01-18] MEDS: dilTIAZem 30 MG Tablet PO SCH ×4 (03:40→17:31)
--- NOTE | 2018-01-18 07:16 | HM ---
Date Performed: 01/14/2018 Time Performed: 16:51:00 HOOKUP DATE: 01/14/18 04:51:00 PM Fri ANALYSIS START TIME: 01/14/2018 4:56:00 PM ANALYSIS END TIME: 01/15/2018 4:59:59 PM PATIENT AGE: 17 PATIENT HEIGHT PATIENT WEIGHT DRUG LIST PATIENT DIAGNOSIS: HEART PALPITATIONS TEST NARRATIVE: The patient's average heart rate was 87 BPM. Heart rates greater than 120 B PM were noted 16% of the time. Heart rates less than 50 BPM were noted < 1% of the time. 18 paus es exceeding 2.0 seconds were noted. The longest pause of 2.3 seconds occurred at 05:57:51 AM Sat. 4431 ventricular ectopics, which represented 4% of the total beat count, were noted. The highest ventricular ectopic frequency occurred from 02:00 PM to 03:00 PM Sat. During this time 705 VE(s) occ urred. Ventricular ectopics were observed as 3464 isolated beat(s), as 436 couplet(s) and as 30 run( s). Some of the ventricular beats occurred in bigeminal cycles. No supraventricular ectopics wer e noted. No episodes of ST depression (defined as -1.0 mm or more) were noted in channel 1. No e pisodes of ST depression (defined as -1.0 mm or more) were noted in channel 2. No episodes of ST dep ression (defined as -1.0 mm or more) were noted in channel 3. TEST INTERPRETATION: The patient was monitored for 24 hours. The patient is in afib with an aver age heart rate of 87 beats per minute, a minimum heart rate of 45 beats per minute. There is a 2 seco nd pause at 11:17pm, a 2 second pause at 1:04am and 1:43am and 2:29am. There is a 2.3 second pause at 5:51am and 6:06. There is a rapid ventricular response to 194 beats per minute, which is irregular. There are multiple runs of wide complex tachycardia which is very subtle and irregular, the longest r un of 5 beats. There is a total of 3,464 wide ventricular beats. I cannot determine if these are all PVCs or aberrantly conducted PACs. There are 30 runs of wide complex tachycardia, the longest being 5 beats. There was a period of normal Sinus rhythm at 65 beats per minute at 4:56am. Signed by : Rafa Peña
--- NOTE | 2018-01-18 10:39 | P.PNONC ---
Subjective Interval history: Patient lying in bed with significant other. He is scheduled for EP study and possible ablation later today. He has no complaints at this time. He denies any bleeding. Objective Vital Signs/Intake & Output: Vital Signs 01/17/18 11:00 01/17/18 12:00 01/17/18 15:00 Temperature 98.4 F Pulse Rate 59 L 75 86 Respiratory Rate 16 Blood Pressure 128/63 Pulse Oximetry 100 01/17/18 16:00 01/17/18 17:00 01/17/18 18:00 Temperature 98 F Pulse Rate 79 78 80 Respiratory Rate 16 Blood Pressure 117/53 L Pulse Oximetry 100 01/17/18 19:00 01/17/18 20:00 01/17/18 21:00 Temperature 98.7 F Pulse Rate 74 85 64 Respiratory Rate 16 Blood Pressure 130/66 Pulse Oximetry 100 01/17/18 22:00 01/17/18 23:00 01/18/18 00:00 Temperature 98.7 F Pulse Rate 70 70 58 L Respiratory Rate 18 Blood Pressure 113/54 L Pulse Oximetry 98 01/18/18 01:00 01/18/18 03:00 01/18/18 04:00 Temperature 98.7 F Pulse Rate 58 L 82 71 Respiratory Rate 18 Blood Pressure 124/58 L Pulse Oximetry 99 01/18/18 05:00 01/18/18 05:31 01/18/18 07:00 Temperature Pulse Rate 55 L 57 L 84 Respiratory Rate Blood Pressure Pulse Oximetry 01/18/18 09:59 Temperature Pulse Rate 68 Respiratory Rate 17 Blood Pressure 115/58 L Pulse Oximetry 100 Intake & Output 01/17/18 01/18/18 01/18/18 18:59 06:59 18:59 Weight 70 kg Result Diagrams: 01/17/18 04:27 01/15/18 05:37 Laboratory Results: Laboratory Results - last 24 hr 01/17/18 01/17/18 19:46 19:46 PT 10.7 INR 1.1 Blood Type A Positive Blood Type Recheck Required Antibody Screen Negative Medications: Active Medications Generic Name Dose Route Start Last Admin Trade Name Freq PRN Reason Stop Dose Admin Diltiazem HCl 30 mg 01/15/18 17:00 01/18/18 10:15 Cardizem PO 30 mg Q6HR RADHA Administration Sodium Chloride 500 mls @ 30 mls/hr 01/17/18 19:00 01/17/18 21:40 Ns Inj IV.CONT 01/18/18 11:39 30 mls/hr .[id number] RADHA Administration Sodium Chloride 500 mls @ 30 mls/hr 01/17/18 19:00 01/17/18 19:00 Ns Inj IV.CONT 01/18/18 11:39 Not Given .[id number] RADHA Sodium Chloride 2 ml 01/14/18 09:00 01/18/18 10:08 Ns Flush IV.FLUSH Not Given BID RADHA Objective Remarks: GENERAL: Well-nourished, well-developed thin, young male patient, in no acute distress. SKIN: Warm and dry. HEAD: Normocephalic. EYES: No scleral icterus. No injection or drainage. NECK: Supple, trachea midline. No JVD or lymphadenopathy. CARDIOVASCULAR: Bradycardic without murmurs. RESPIRATORY: Breath sounds clear, equal bilaterally. Nonlabored at rest. GASTROINTESTINAL: Abdomen soft, non-tender, nondistended. EXTREMITIES: No cyanosis, or edema. MUSCULOSKELETAL: Adequate muscle tone. NEUROLOGICAL: No obvious focal deficit. Awake, alert, and oriented x3. PSYCHIATRIC: Appropriate mood and affect; insight and judgment normal. Assessment/Plan - Plan Mr. Wren is a 17-year-old male patient with no significant past medical history. He is currently hospitalized for atrial fibrillation and was found to have a decreased ejection fraction of 45%. Hematology was consulted for thrombocytopenia. Recommendations: 1. Thrombocytopenia, platelet count is stable at 138,000 today. Peripheral blood smear suggest a reactive process. Liver US: 14.8 cm normal echogenicity without focal lesion or ductal dilation. He was noted to have a distended gallbladder without definitive sonography findings for acute cholecystitis. 2. Atrial fibrillation, pending EP/ablation today. Management per tennis professional. 3. Patient may continue anticoagulants, per cardiology orders, with his current platelet counts. Recommend periodic monitoring of blood counts.
[2018-01-18] MEDS ORDERED: Levofloxacin 500 mg Premix Inj 500 MG/100 ML PIGGYBACK IV.SIG ONE (11:41)
[2018-01-18] MEDS ORDERED: Lidocaine 1% Inj 50 ML Vial ONE (11:41)
[2018-01-18] MEDS ORDERED: Heparin/NS PF Inj 1,500 ML ONE (11:41)
--- NOTE | 2018-01-18 13:34 | CATHPROC ---
[facility] HIS Report Study Information Study Number Admission Scheduled Start Study Start [id number] Jan 14 2018 1:23AM 01/18/2018 Jan 18 2018 11:39AM [facility] Electrophysiology Study Admit Source Facility Department Other [facility] - Batterboard Setter Physician and Clinical Staff Initial Denise Rocha Other Anesthesia, STEAM METER READER Recorder Chanel Yancey RN Equipment Time Industrial Sewer Description Size Mfg Part Number Used/Scraped COPILOT VALVE, BLEEDBACK [id number] 12:50 [employer] Used CONTROL *[id number] TRANSDUCER, TRUWAVE [id number] 12:50 JAQUEZ XIAO * Used W/STOCKCOCK *[id number] NEEDLE, TRANSSEPTAL NR 98 [id number] 12:50 [facility] Used C1 *[id number] COVER, TRANSDUCER CABLE [id number] 12:50 [employer] Used ACUNAV *[id number] 12:50 CONMED LEADWIRE, DEFIBRILLATION PAD 2001M-PC Used SHEATH SET, FR12 CHECK-JOSE RCF-[id number]-[id number] 12:50 COOK/PACER FR12 Used 13CM *[id number] 12:50 CORDIS/PACER SHEATH, FR10 ELLIOTT 11CM FR 10 Used *[id number] 12:50 [employer] BLANKET,WARM AIR CCL * Used *[id number] 12:50 [employer] PACK, CCL CUSTOM * Used *[id number] 12:50 [employer] PACER NOWAK, LIMB * 2530 *[id number] Used 12:50 [employer] SHEATH, FR5.5 PRELUDE 11CM FR 5 [id number] Used [id number] 12:50 [employer] MEDICAL WIRE, 3MMJ .035 180CM 180CM Used *[id number] 12:50 NAMIC MANIFOLD, 4 PORT * Used *[id number] 12:50 NAMIC TUBING, HIGH PRESSURE 20" 20" Used *[id number] [id number] 12:50 NAMIC TUBING, HIGH PRESSURE 48" 48" Used *[id number] [id number] 12:50 NAMIC TUBING, HIGH PRESSURE 48" 48" Used *[id number] TUBING, 72" MONITORING [id number] 12:50 NAMIC PACER 72" Used (PACER) *[id number] 713762 12:50 [employer] MED[employer] CATHETER, JSN, QUAD FR 5 Used *[id number] 240875 12:50 [employer] MEDICAL CATHETER, JSN, QUAD FR 5 Used *[id number] [id number] 12:50 [employer] EB[employer] MEDICAL ELECTRODE KIT, WALTER X SURFACE * Used *2668469 021857 12:50 [employer] SHEATH, EPS, FR6 FAST CATH FR 6 Used *[id number] 12:50 [employer] MED[employer] SHEATH, EPS, FR7 FAST CATH FR 7 [id number] Used 475100 12:50 [facility] [employer] MED[employer] SHEATH, EPS, FR8 FAST CATH FR 8 Used *[id number] [facility] PAD, ELECTROSURGICAL 12:50 * [id number] *[id number] Used SURGICAL GROUNDING (BLUE) BALLOON, ARCTIC FRONT [id number] 12:52 [employer] Used ADVANCE 28MM *[id number] CATHETER, ACHEIVE MAPPING 2ACH20 12:54 [employer] 20MM Used 20MM *[id number] SHEATH, FR12 FLEXCATH 12:51 [employer] FR 12 [id number] Used STEERABLE History: Allergies Allergy Reaction No Known Allergies Labs Hgb (g/dl) Hct (%) RBC (MIL/MM3) WBC (l/cumm) Platelets (thousands) 11.60-17.00 35.00-51.00 4.00-5.90 4.00-11.00 150.00-450.00 15.0 45 4.6 7.2 138 Glucose (mg/dl) BUN (mg/dl) Creatinine (mg/dl) BUN:Creatinine (1:x) 74.00-106.00 7.00-18.00 0.50-1.30 10.00-20.00 89 11 1.1 10 Na (meq/l) K (meq/l) 136.00-145.00 3.50-5.10 140 3.8 INR (PTT:PT) 0.90-1.10 1.1 Medication (Drip) Medication Time Given Dosage/Unit Concentration/Unit Diluent (ml) Solution 01/18/2018 12:38:23 LEVAQUIN 100 mL/hr 500 100 NaCl .9 PM 100 mL/hr LEVAQUIN given in lab by Anesthesia, STEAM METER READER via Peripheral IV. Pump/Drip Flow = 0 ml/hr using NaCl .9 with a concentration of 500 in 100 ml. Ordered by Denise Hancock. Reason: As per physicians verbal order. Initial Case Assessment Cardiovascular HR Rhythm NIBP Chest Pain 103 st 155/63 0 Edema Present Skin color Skin None Normal Warm Dry Circulatory - Right Pulses Dorsalis Pedis 1 Scale (0,1,2,3,4,d) Circulatory - Left Pulses Dorsalis Pedis 1 Scale (0,1,2,3,4,d) Circulatory - Lower Extremities Color Lower Right Color Lower Left Normal Normal Neurological State Oriented to time-place- Alert Moves all extremities person Respiration - General Respiration Rate SpO2 (%) (B/min) 18 93 Final Case Assessment Cardiovascular HR Rhythm NIBP Chest Pain 61 sr 107/55 0 Edema Present Skin color Skin None Normal Warm Dry Circulatory - Right Pulses Dorsalis Pedis 1 Scale (0,1,2,3,4,d) Circulatory - Left Pulses Dorsalis Pedis 1 Scale (0,1,2,3,4,d) Circulatory - Lower Extremities Color Lower Right Color Lower Left Normal Normal Neurological State Unresponsive Comment: under anesthesia Respiration - General Respiration Rate SpO2 (%) (B/min) 16 100 Comment: intubate and under care of anesthesia Chronological Log Time Study Chronological Log 12:13:05 Patient arrived via Bed. 12:13:06 Patient Name, D.O.B, / Armband Verified By R.N. 12:13:07 Consent signed by the physician and the patient and verified by the Batterboard Setter staff. 12:13:07 Pre-op and post- op instructions given; patient acknowledges understanding of instructions. 12:13:08 Verbal Stimulation=2 Physical Stimulation=2 Airway=2 Respiration=2 TOTAL=8. (0=absent, 1=li mited, 2=present) 12:13:18 Patient has been NPO for More than 6Hrs. 12:13:18 Skin Breakdown- right forearm w scrathes 12:13:23 Patient Warmer Placed on the Table. 12:13:24 Disposable Defibrillator Pads Placed On Patient. 12:13:25 Casie Prominences Protected 12:13:27 A # 20 IV was noted in the Antecubital (right). Grade = 0 0.9ns kvo 12:13:27 A # 18 IV was noted in the Antecubital (left). Grade = 0 0.9ns kvo 12:13:29 History and physical on the chart or being dictated. 12:20:46 Anesthesia at bedside. Assumes care of patient. 12:21:20 Table restraints applied according to hospital policy Assessment: Initial Case, RA=638 BPM, Rhythm=st, OHPG=837/63 mmhg, Chest Pain=0, Edema=None, Co felicity=Normal, Skin = Warm, Dry Right Pulses: Danyel Ped=1 Left Pulses: Danyel Ped=1 12:30:20 Lower Right Extremities: Color=Normal Lower Left Extremities: Color=Normal Neurological: State=Alert, Ox3, FLEMING Respiration: Resp=18 B/min, SpO2=93 % 100 mL/hr LEVAQUIN given in lab by Anesthesia, STEAM METER READER via Peripheral IV. Pump/Drip Flow = 0 ml/hr using NaCl .9 with 12:38:23 a concentration of 500 in 100 ml. Ordered by Denise Hancock. Reason: As per physicians verbal or jerry. 12:40:16 Bilateral groins prepped with 2% chlorhexidine, and draped after a 3 minute waiting time. 12:47:53 Reference ECG taken 12:47:57 Pressure channel 1 zeroed. 12:50:55 MD paged Time Out. Correct patient, procedure, procedure equipment, site and side verified with physicia n present. Time 12:57:00 concurred by MD, individual staff and STEAM METER READER. Time Out #2 - Consents verified, patient in correct position, all results are labled and displa yed, safety precautions 12:57:22 taken, antibiotics administered. Time out concurred by MD, individual staff and STEAM METER READER in procedu re 12:57:51 Case Start 12:58:20 Lauri in progress 13:10:00 Dr Lopez present to review LAURI w Dr Hancock. 13:22:53 Case End (Physician broke scrub) 13:23:45 Case cancelled 13:24:02 Lauri complete 13:25:21 No case complications noted. 13:25:22 Cine recording checked. 13:25:44 PACU called. Spoke to Tyra 13:25:50 Bedside Report will be given. 13:25:54 Defibrillator and ground pads removed. Skin intact. Assessment: Final Case, HR=61 BPM, Rhythm=sr, XFZL=029/55 mmhg, Chest Pain=0, Edema=None, Color =Normal, Skin = Warm, Dry Right Pulses: Danyel Ped=1 Left Pulses: Danyel Ped=1 13:28:01 Lower Right Extremities: Color=Normal Lower Left Extremities: Color=Normal Neurological: State=Unresponsive, Comment=under anesthesia Respiration: Resp=16 B/min, TmU8=565 %, Comment=intubate and under care of anesthesia 13:32:44 Dean removed w/o difficulty 13:38:59 Patient moved to stretcher End Study - Contrast Media Used In Study Contrast Total Opened (mL) Total Used (mL) Total Wasted (mL) Omnipaque 300 150 0 150 End Study - Maximum Contrast Load Max Contrast Load (mL) 318.2 End Study - Radiation Exposure Fluoro Time (minutes) 0.0 End Study - Patient Disposition Complications Transferred To Interventional Outcome No Telemetry Bed No attempt made
[2018-01-18] MEDS ORDERED: fentaNYL Citrate Inj 100 MCG/2 ML Ampul ONE (13:55)
--- NOTE | 2018-01-18 14:35 | P.PNCA ---
Subjective Interval history: s/p guillermo, mildly sedated in nad Medications and Allergies Active Medications: Active Medications Acetaminophen (Tylenol) 650 mg PO Q4H PRN PRN Reason: Temp > 100.4 Al Hydroxide/Mg Hydroxide (Milk Of Magnesia Liq) 30 ml PO Q12H PRN PRN Reason: Mild Constipation Bisacodyl (Dulcolax Supp) 10 mg RECTAL DAILY PRN PRN Reason: SEVERE CONSITIPATION Diltiazem HCl (Cardizem) 30 mg PO Q6HR [facility] Last Admin: 01/18/18 10:15 Dose: 30 mg Lactulose (Lactulose Liq) 30 ml PO DAILY PRN PRN Reason: SEVERE CONSITIPATION Lorazepam (Ativan) 1 mg SL SOFTWARE QA SYSTEM SPECIALIST PRN PRN Reason: Clinical Esthetician to Acid Etch Operator Miscellaneous Information ([facility] Information) 0 each OTHER UNSCH PRN PRN Reason: SEE LABEL COMMENTS Stop: 01/19/18 13:48 Ondansetron HCl (Zofran Inj) 4 mg IV.PUSH Q6H PRN PRN Reason: NAUSEA OR VOMITING Sennosides (Senokot) 17.2 mg PO Q12H PRN PRN Reason: Moderate Constipation Sodium Chloride (Ns Flush) 2 ml IV.FLUSH BID [facility] Last Admin: 01/18/18 10:08 Dose: Not Given Sodium Chloride (Ns Flush) 2 ml IV.FLUSH PRN PRN PRN Reason: FLUSH AFTER USING IV ACCESS Allergies Allergy/AdvReac Type Severity Reaction Status Date / Time No Known Allergies Allergy Verified 01/13/18 23:15 Home Medications Medication Instructions Recorded Confirmed Type No Known Home Medications 01/13/18 01/13/18 History Physical Exam Vital signs: Vital Signs 01/17/18 15:00 01/17/18 16:00 01/17/18 17:00 Temperature 98 F Pulse Rate 86 79 78 Respiratory Rate 16 Blood Pressure 117/53 L Pulse Oximetry 100 01/17/18 18:00 01/17/18 19:00 01/17/18 20:00 Temperature 98.7 F Pulse Rate 80 74 85 Respiratory Rate 16 Blood Pressure 130/66 Pulse Oximetry 100 01/17/18 21:00 01/17/18 22:00 01/17/18 23:00 Temperature Pulse Rate 64 70 70 Respiratory Rate Blood Pressure Pulse Oximetry 01/18/18 00:00 01/18/18 01:00 01/18/18 03:00 Temperature 98.7 F Pulse Rate 58 L 58 L 82 Respiratory Rate 18 Blood Pressure 113/54 L Pulse Oximetry 98 01/18/18 04:00 01/18/18 05:00 01/18/18 05:31 Temperature 98.7 F Pulse Rate 71 55 L 57 L Respiratory Rate 18 Blood Pressure 124/58 L Pulse Oximetry 99 01/18/18 07:00 01/18/18 08:00 01/18/18 09:00 Temperature Pulse Rate 84 60 76 Respiratory Rate Blood Pressure Pulse Oximetry 01/18/18 09:59 01/18/18 10:00 01/18/18 11:00 Temperature Pulse Rate 68 64 100 H Respiratory Rate 17 Blood Pressure 115/58 L Pulse Oximetry 100 01/18/18 12:00 Temperature 98.6 F Pulse Rate 82 Respiratory Rate 18 Blood Pressure 124/61 Pulse Oximetry 99 Intake & Output 01/17/18 01/18/18 01/18/18 18:59 06:59 18:59 Weight 70 kg - Constitutional no acute distress - Routine HEENT Exam Head: Present: normocephalic - Routine Neck Exam Present: supple - Routine Respiratory Exam Present: CTA bilaterally - Routine Cardiovascular Exam Present: S1, S2 - Routine Abdominal Exam Present: soft - Routine Extremities Exam Comments: no stuart Results 01/17/18 04:27 01/15/18 05:37 Cardiac Enzymes 01/17/18 Range/Units 04:27 Lactate Dehydrogenase 102 (87-241) U/L Coagulation 01/17/18 01/17/18 Range/Units 04:27 19:46 PT 11.2 10.7 (9.8-11.6) sec APTT 31.0 (23.4-31.7) sec CBC 01/17/18 01/17/18 Range/Units 04:27 04:27 WBC 7.2 (4.0-11.0) th/mm3 RBC 4.64 (4.50-5.90) mil/mm3 Hgb 15.9 (13.0-17.0) gm/dL Hct 45.3 (39.0-51.0) % Plt Count 135 L 138 L (150-450) th/mm3 Intake and Output 01/17/18 01/18/18 01/18/18 22:59 06:59 14:59 Other: Weight 70 kg - Imaging and Cardiology Imaging: Impressions Liver Ultrasound 01/17/18 00:00 CONCLUSION: 1. Distended gallbladder without definitive sonographic findings for acute cholecystitis. Assessment and Plan - Assessment (1) Cardiomyopathy Code(s): I42.9 - Cardiomyopathy, unspecified Status: Acute (2) Atrial fibrillation with RVR Code(s): I48.91 - Unspecified atrial fibrillation Status: Acute - Plan 1.) PAF - in nsr, continue lovenox due to cardiomyopathy, ef=45-50%; this may be due to rvr; Dr Hancock following continue cardizem 30 mg qid,
[2018-01-18 14:37] VITALS: TEMP 98.2; O2SAT 98
[2018-01-18 17:31] VITALS: BP 117/56; PULSE 70; RESP 18
--- NOTE | 2018-01-18 17:39 | P.DS ---
Date of admission: 01/14/18 01:23 Primary care physician: No Primary Care Physician Brief History from admission: 17-year-old male with no chronic medical illnesses who presented hospital for evaluation of fast heart rate. Patient states that little over a year ago he had an episode like this and was evaluated with testing to include EKGs, Holter monitor. He states that nothing was concluded with those test. Yesterday when the patient was sitting down at rest he is felt his heart starting to race, and because he had an episode of this before he wanted to come to the hospital to get an EKG to get it evaluated. On presentation patient had atrial fibrillation with RVR with heart rate 170. Patient was given Ativan, Lopressor, Inderal with improvement of his heart rate. Patient still with arrhythmia of atrial fibrillation, however rate is controlled. Patient denies any chest pain, shortness of breath, dyspnea, lightheadedness, dizziness, diaphoresis. Patient denies any amphetamine use, caffeine use, energy drinks, cold medications. DS: Medications - Discharge Medications Prescriptions: aspirin 81 mg PO DAILY #30 tab diltiazem HCl 30 mg PO Q6HR #120 tab DS: Summary Hospital Course: 1. Atrial for ablation with rapid ventricular rate 2. Anterior mitral valve growth This patient is a 17-year-old male who says he initially had symptoms of atrial fibrillation approximately 2 years ago however EKG, Holter monitor and during that time did not show any significant findings. The patient presented to our emergency department with complaints of palpitations. In the emergency department he was found to be in atrial for ablation with rapid ventricular rate. He was subsequently admitted and started on medications for rate control. He subsequently converted back to normal sinus rhythm. Cardiology was consulted to evaluate the patient. A 2D echocardiogram was done which showed an ejection fraction of 45-50%. Chads vasc score is 1. Insurance Business Analyst was consulted to evaluate the patient. Patient subsequently underwent a BERT which revealed a growth on the anterior portion of the mitral valve as per my discussion with Dr. Leiva who performed the procedure. He does not believe this is a clot or a tumor. The risks and benefits of being on anticoagulation were discussed with the patient as well as the patient's father did not want to be on anticoagulation however are okay with starting aspirin. Case was discussed with the rivet tosser who recommends that the patient follow-up with him outpatient in the next 1 week as the patient may need further workup and care at a tertiary care facility. Patient will be discharged on Cardizem as well as aspirin on discharge. He is currently in his normal sinus rhythm and has a normal heart rate. - Time Spent with Patient Total time spent providing and/or coordinating discharge services: Greater than 30 minutes - Quality: VTE Deep Vein Thrombosis/Pulmonary Embolism Present on Admission: No Exam Vital signs: Vital Signs 01/17/18 18:00 01/17/18 19:00 01/17/18 20:00 Temperature 98.7 F Pulse Rate 80 74 85 Respiratory Rate 16 Blood Pressure 130/66 Pulse Oximetry 100 01/17/18 21:00 01/17/18 22:00 01/17/18 23:00 Temperature Pulse Rate 64 70 70 Respiratory Rate Blood Pressure Pulse Oximetry 01/18/18 00:00 01/18/18 01:00 01/18/18 03:00 Temperature 98.7 F Pulse Rate 58 L 58 L 82 Respiratory Rate 18 Blood Pressure 113/54 L Pulse Oximetry 98 01/18/18 04:00 01/18/18 05:00 01/18/18 05:31 Temperature 98.7 F Pulse Rate 71 55 L 57 L Respiratory Rate 18 Blood Pressure 124/58 L Pulse Oximetry 99 01/18/18 07:00 01/18/18 08:00 01/18/18 09:00 Temperature Pulse Rate 84 60 76 Respiratory Rate Blood Pressure Pulse Oximetry 01/18/18 09:59 01/18/18 10:00 01/18/18 11:00 Temperature Pulse Rate 68 64 100 H Respiratory Rate 17 Blood Pressure 115/58 L Pulse Oximetry 100 01/18/18 12:00 01/18/18 13:50 01/18/18 14:00 Temperature 98.6 F Pulse Rate 82 79 72 Respiratory Rate 18 24 24 Blood Pressure 124/61 141/66 H 128/61 Pulse Oximetry 99 100 98 01/18/18 14:15 01/18/18 15:00 01/18/18 16:00 Temperature 98.2 F Pulse Rate 70 78 80 Respiratory Rate 23 Blood Pressure 124/56 L Pulse Oximetry 98 01/18/18 17:00 Temperature Pulse Rate 84 Respiratory Rate Blood Pressure Pulse Oximetry Intake & Output 01/17/18 01/18/18 01/18/18 18:59 06:59 18:59 Intake Total 0 / 0 Output Total 0 / 0 Balance 0 / 0 Weight 70 kg Intake: Oral 0 / 0 Output: Urine 0 / 0 Narrative: General patient in no acute distress HEENT extraocular movements are intact, clear oropharyngeal mucosa, no JVD Cardiovascular S1-S2 audible, RRR, no murmurs rubs or gallops Respiratory clear to auscultation bilaterally Abdomen soft, nontender, nondistended, normal bowel sounds Extremities no edema 2+ distal pulses in bilateral upper and lower extremities Neuro cranial nerves II through XII intact Results Procedures completed during hospitalization: ECHOCARDIOGRAM CONCLUSIONS The left ventricular systolic function is mildly reduced with an estimated ejection fraction in the range of 45- 50%. Normal left ventricular size. Mild mitral valve regurgitation. There is trace tricuspid valve regurgitation. The estimated pulmonary arterial pressure is 31 mmHg. BERT Labs on day of discharge: Labs from last 24 hours 01/17/18 01/17/18 19:46 19:46 PT 10.7 INR 1.1 Blood Type A Positive Blood Type Recheck Required Antibody Screen Negative - Impressions ITS Impressions Myocardial Perfusion Scan Nuc Med 01/14/18 09:18 CONCLUSION: 1. Negative for stress-induced ischemia. 2. Gut activity does mass the inferior wall 3. Ejection fraction is 45% with global hypokinesis. Correlation suggested. Liver Ultrasound 01/17/18 00:00 CONCLUSION: 1. Distended gallbladder without definitive sonographic findings for acute cholecystitis. Discharge Plan - Discharge Disposition Patient Disposition: 01 Discharge Home - Discharge Condition Condition: Good - Discharge Order Discharge Orders: Discharge Order (Routine); Ordered 01/18/18 Ordered By: Ethan Quintanilla - Physicians Team Primary Care Provider: Primary Care Physici,No Attending Provider: Ethan Quintanilla Other Providers: Rafa Peña MD ; Ester Harrison MD ; Romulo Gamble MD
--- NOTE | 2018-01-19 07:48 | CF ---
cc: Denise Hancock MD DATE: 01/18/2018 INDICATION: The patient is a 17-year-old gentleman with history of atrial fibrillation in the past 2 years. Previous emergency room visit, admit due to atrial fibrillation with fast ventricular response. During hospitalization, Cardizem was given. Ejection fraction decreased to around 40-45%. A decision for ablation was taken. Prior to that, the patient was scheduled for transesophageal echo. The risks, the nature and the benefits of the procedure are clearly stated to him, ____ dysphagia, perforation, aspiration, need for endotracheal intubation and even . He understood and agreed to proceed. PROCEDURE: After ID, informed consent was obtained, the patient was brought to the EP lab where he was evaluated by the anesthesiologist. Once sedation was verified, the probe was advanced without difficulty ____ the esophagus. Multiple views were obtained. There is a borderline left ventricular systolic function. No chamber enlargement. Aortic valve is trileaflet. There was a very thickening of the mitral valve leaflet with adequate opening. Also, there is a mobile structure seen at the anterior and posterior mitral valve leaflet. This does not look like this is a vegetation. Not a . I did multiple view of the mass. I did review it with Dr. Mahajan CV surgery. I am not sure what this structure is. I did also review the previous 2-D echo where I can see clearly the structure there. At that point, I decided to consult the procedure. I do not want the catheter to get caught in the mitral valve and piece of the growth go to the brain and provoke a stroke. The procedure was complete. Ablation cancelled. The case was discussed with the family while the patient is on the table. No . CONCLUSION: 1. There is some structure seen in both anterior and posterior mitral valve leaflet. 2. There is a slightly decreased left ventricular systolic function, ejection fraction maybe 45-50%. 3. No chamber enlargement. 4. Aortic valve is trileaflet. RECOMMENDATIONS: After discussion to the patient's family and CV surgery, I am going to refer him to [facility] for possible cardiac MRI or another transesophageal echo and further evaluation by noninvasive specialists. The patient can be discharged home today or tomorrow. The appointment will be scheduled as an outpatient. MD Irina Martini , 01:56 PM , 02:07 PM
== END 2018-01-18 19:15 | disposition home or self-care (01) ==
LOC: PHED 23:04 → PHEDA 23:04 → PHICU 01-14 02:23 → HCIS 01-15 12:27 → HCPC 01-15 12:50
PROVIDERS: ADMIT Hospitalist; ATTEND Hospitalist